=== PATIENT | female | born 1985 | race Caucasian/White ===

== ENCOUNTER 2022-06-10 19:38 | Emergency (ER) | payer OTHER ==
[2022-06-10 20:00] VITALS: RESP 16; TEMP 98.7
[2022-06-10 20:27] LABS: Basophils # (A) 0.1 k/uL (0-0.2); Basophils % (A) 0 %; Eosinophils # (A) 0.3 k/uL (0-0.7); Eosinophils % (A) 2 %; HCT 43.1 % (34.0-46.0); HGB 14.4 gm/dL (11.4-16.0); Lymphocytes # (A) 3.2 k/uL (1.0-4.8); Lymphocytes % (A) 21 %; MCH 29.5 pg (25.0-35.0); MCHC 33.5 g/dL (31.0-37.0); MCV 88.2 fL (80.0-100.0); Monocytes # (A) 0.6 k/uL (0-1.0); Monocytes % (A) 4 %; Neutrophils # (A) 10.8 k/uL (1.3-7.7); Neutrophils % (A) 71 %; Platelet Count 414 k/uL (150-450); RBC 4.88 m/uL (3.80-5.40); RDW 13.3 % (11.5-15.5); WBC 15.1 k/uL (3.8-10.6)
--- NOTE | 2022-06-10 20:40 | ED ---
General Adult HPI - General Source: patient Mode of arrival: ambulatory Limitations: no limitations <Yuki Alvarez - Last Filed: 06/10/22 20:37> <Luca Nobles - Last Filed: 06/11/22 02:47> - General Chief complaint: Syncope Stated complaint: Seizure,Sent by PCP Time Seen by Provider: 06/10/22 20:37 - History of Present Illness Initial comments: 56-year-old female with no significant past medical history presents to the emergency Department chief complaint of syncopal episode. (Yuki Núñez) This is a 36-year-old female with no past medical history presents emergency department for evaluation after syncopal episode that happened earlier in the day. The patient stated that she woke up and took a shower when she got out she inhaled some anti-nausea [id number] medications which she normally does and then stated that she felt nauseous and sat down on the floor. The next thing that she was aware of was that it was an hour later and she had bit her t ongue. The patient did not urinate on herself. The patient did not hit her head. The patient stated that she took a nap after this but then went to work all day without any further acute complaints. The patient was advised by a friend to get evaluated. On arrival, the patient had no complaints was resting in bed comfortably. The patient stated she has never passed out before. (Luca Sarabia) - Related Data Previous Rx's Medication Instructions Recorded Cephalexin [Keflex] 500 mg PO Q6HR 1 Days #20 cap 06/10/22 Allergies Allergy/AdvReac Type Severity Reaction Status Date / Time No Known Allergies Allergy Verified 06/10/22 22:27 Review of Systems ROS Other: All systems not noted in ROS Statement are negative. <Yuki Alvarez - Last Filed: 06/10/22 20:37> ROS Other: All systems not noted in ROS Statement are negative. <Luca Nobles - Last Filed: 06/11/22 02:47> ROS Statement: Those systems with pertinent positive or pertinent negative responses have been documented in the HPI. Past Medical History Past Medical History: No Reported History History of Any Multi-Drug Resistant Organisms: None Reported Past Surgical History: No Surgical Hx Reported Past Psychological History: No Psychological Hx Reported Smoking Status: Current some day smoker Past Alcohol Use History: None Reported Past Drug Use History: Marijuana <Yuki Alvarez - Last Filed: 06/10/22 20:37> General Exam Limitations: no limitations <Yuki Alvarez - Last Filed: 06/10/22 20:37> Limitations: no limitations General appearance: alert, in no apparent distress, obese Head exam: Present: atraumatic, normocephalic, normal inspection Eye exam: Present: normal appearance, PERRL Pupils: Present: normal accommodation ENT exam: Present: normal exam, normal oropharynx, mucous membranes moist Neck exam: Present: normal inspection, full ROM Respiratory exam: Present: normal lung sounds bilaterally Cardiovascular Exam: Present: regular rate, normal rhythm, normal heart sounds GI/Abdominal exam: Present: soft, normal bowel sounds Extremities exam: Present: normal inspection, full ROM Back exam: Present: normal inspection, full ROM Neurological exam: Present: alert, oriented X3, CN II-XII intact Psychiatric exam: Present: normal affect, normal mood Skin exam: Present: warm, dry <Luca Nobles - Last Filed: 06/11/22 02:47> - General Exam Comments Initial Comments: Visual Physical Exam Vital signs reviewed General: Well-appearing, nontoxic, no acute distress. Head: Normocephalic, atraumatic Eyes: PERRLA, EOMI ENT: Airway patent Chest: Nonlabored breathing Skin: No visual rash, normal skin tone Neuro: Alert and oriented 3 Musculoskeletal: No gross abnormalities (Yuki Alvarez) Course Vital Signs 06/10/22 06/10/22 19:57 23:50 Temperature 98.7 F 98.7 F Pulse Rate 88 82 Respiratory 16 16 Rate Blood Pressure 172/110 132/78 O2 Sat by Pulse 98 99 Oximetry EKG Findings - EKG Comments: EKG Findings:: In EKG was obtained and was interpreted by myself showing a rate of 84, TN interval of 144, QRS duration of 90 and QTC of 427. This EKG showed a normal sinus rhythm with no ST segment elevation or depression noted. <Luca Nobles - Last Filed: 06/11/22 02:47> Medical Decision Making - Lab Data Result diagrams: 06/10/22 20:12 <Yuki Alvarez - Last Filed: 06/10/22 20:37> - Lab Data Result diagrams: 06/10/22 20:12 06/10/22 20:12 <Luca Nobles - Last Filed: 06/11/22 02:47> - Medical Decision Making Was pt. sent in by a medical professional or institution (, PA, FENCE [employer]IVER, urgent care, hospital, or care home...) When possible be specific @ -No Did you speak to anyone other than the patient for history (EMS, parent, family, police, friend...)? What history was obtained from this source @ -No Did you review nursing and triage notes (agree or disagree)? Why? @ -I reviewed and agree with nursing and triage notes Were old charts reviewed (outside hosp., previous admission, EMS record, old EKG, old radiological studies, urgent care reports/EKG's, care home records)? Report findings @ -No old charts were reviewed Differential Diagnosis (chest pain, altered mental status, abdominal pain women, abdominal pain men, vaginal bleeding, weakness, fever, dyspnea, syncope, head ache, dizziness, GI bleed, back pain, seizure, CVA, palpatations, mental health)? @ -Vasovagal syncope, UTI, ACS EKG interpreted by me (3pts min.). @ -As above X-rays interpreted by me (1pt min.). @ -Chest x-ray was obtained and was interpreted by myself showing low lung volumes with generalized 80 appearance which could represent atelectasis versus pulmonary edema. The patient's proBNP was however negative and the patient denied any shortness of breath or chest pain. CT interpreted by me (1pt min.). @ -None done U/S interpreted by me (1pt. min.). @ -None done What testing was considered but not performed or refused? (CT, X-rays, U/S, labs)? Why? @ -None What meds were considered but not given or refused? Why? @ -None Did you discuss the management of the patient with other professionals (professionals i.e. , SARAH, FENCE [employer]IVER, lab, RT, psych nurse, licensed clinical social worker, java support engineer, teacher, chief legal officer, case folder)? Give summary @ -No Was smoking cessation discussed for >3mins.? @ -No Was critical care preformed (if so, how long)? @ -No Were there social determinants of health that impacted care today? How? (Homel essness, low income, unemployed, alcoholism, drug addiction, transportation, low edu. Level, literacy, decrease access to med. care, shelter, rehab)? @ -No Was there de-escalation of care discussed even if they declined (Discuss DNR or withdrawal of care, Hospice)? DNR status @ -No What co-morbidities impacted this encounter? (DM, HTN, Smoking, COPD, CAD, Cancer, CVA, ARF, Chemo, Hep., AIDS, mental health diagnosis, sleep apnea, morbid obesity)? @ -None Was patient admitted / discharged? Hospital course, mention meds given and route, prescriptions, significant lab abnormalities, going to OR and other pertinent info. @ -The patient was seen and evaluated emergency department. Physical exam, the patient was resting in bed without any acute distress. Vital signs admission were stable. All workup was negative and the patient had a full day of work without any acute symptoms. The patient likely had an episode of vasovagal syncope earlier in the day. The patient had a negative workup and was stable for discharge home. The patient's urinalysis however did show a UTI and she was given a dose of Keflex in the emergency department as well as given a presc ription for Keflex to be taken at home. The patient was instructed to follow-up with her primary care physician for further workup and evaluation and to report back to the emergency department if she had further recurrent syncopal episodes. The patient was agreeable to this and all her questions were answered. The patient was discharged home in stable condition. Undiagnosed new problem with uncertain prognosis? @ -No Drug Therapy requiring intensive monitoring for toxicity (Heparin, Nitro, Insulin, Cardizem)? @ -No Were any procedures done? @ -No Diagnosis/symptom? @ -Vasovagal syncope Acute, or Chronic, or Acute on Chronic? @ -Acute Uncomplicated (without systemic symptoms) or Complicated (systemic symptoms)? @ -Uncomplicated Side effects of treatment? @ -No Exacerbation, Progression, or Severe Exacerbation? @ -No Poses a threat to life or bodily function? How? (Chest pain, USA, MS, pneumonia, PE, COPD, DKA, ARF, appy, cholecystitis, CVA, Diverticulitis, Homicidal, Suicidal, threat to staff... and all critical care pts) @ -No Diagnosis/symptom? @ -Urinary tract infection Acute, or Chronic, or Acute on Chronic? @ -Acute Uncomplicated (without systemic symptoms) or Complicated (systemic symptoms)? @ -Uncomplicated Side effects of treatment? @ -none Exacerbation, Progression, or Severe Exacerbation] @ -no Poses a threat to life or bodily function? @ -no (Luca Nobles) - Lab Data Lab Results 06/10/22 06/10/22 06/10/22 Range/Units 20:12 20:12 20:12 WBC 15.1 H (3.8-10.6) k/uL RBC 4.88 (3.80-5.40) m/uL Hgb 14.4 (11.4-16.0) gm/dL Hct 43.1 (34.0-46.0) % MCV 88.2 (80.0-100.0) fL MCH 29.5 (25.0-35.0) pg MCHC 33.5 (31.0-37.0) g/dL RDW 13.3 (11.5-15.5) % Plt Count 414 (150-450) k/uL MPV 7.0 Neutrophils % 71 % Lymphocytes % 21 % Monocytes % 4 % Eosinophils % 2 % Basophils % 0 % Neutrophils # 10.8 H (1.3-7.7) k/uL Lymphocytes # 3.2 (1.0-4.8) k/uL Monocytes # 0.6 (0-1.0) k/uL Eosinophils # 0.3 (0-0.7) k/uL Basophils # 0.1 (0-0.2) k/uL PT 10.1 (9.0-12.0) sec INR 0.9 (<1.2) APTT 25.3 (22.0-30.0) sec Sodium 136 L (137-145) mmol/L Potassium 4.5 (3.5-5.1) mmol/L Chloride 102 (98-107) mmol/L Carbon Dioxide 24 (22-30) mmol/L Anion Gap 10 mmol/L BUN 15 (7-17) mg/dL Creatinine 0.64 (0.52-1.04) mg/dL Est GFR (CKD-EPI)AfAm >90 (>60 ml/min/1.73 sqM) Est GFR (CKD-EPI)NonAf >90 (>60 ml/min/1.73 sqM) Glucose 99 (74-99) mg/dL Calcium 9.5 (8.4-10.2) mg/dL Total Bilirubin 0.4 (0.2-1.3) mg/dL AST 36 (14-36) U/L ALT 45 H (4-34) U/L Alkaline Phosphatase 96 (38-126) U/L Troponin I (0.000-0.034) ng/mL NT-Pro-B Natriuret Pep pg/mL Total Protein 7.8 (6.3-8.2) g/dL Albumin 4.3 (3.5-5.0) g/dL Urine Color Urine Appearance (Clear) Urine pH (5.0-8.0) Ur Specific Bly (1.001-1.035) Urine Protein (Negative) Urine Glucose (UA) (Negative) Urine Ketones (Negative) Urine Blood (Negative) Urine Nitrite (Negative) Urine Bilirubin (Negative) Urine Urobilinogen (<2.0) mg/dL Ur Leukocyte Esterase (Negative) Urine RBC (0-5) /hpf Urine WBC (0-5) /hpf Ur Squamous Epith Cells (0-4) /hpf Urine Bacteria (None) /hpf Urine Mucus (None) /hpf 06/10/22 06/10/22 06/10/22 Range/Units 20:12 22:24 22:40 WBC (3.8-10.6) k/uL RBC (3.80-5.40) m/uL Hgb (11.4-16.0) gm/dL Hct (34.0-46.0) % MCV (80.0-100.0) fL MCH (25.0-35.0) pg MCHC (31.0-37.0) g/dL RDW (11.5-15.5) % Plt Count (150-450) k/uL MPV Neutrophils % % Lymphocytes % % Monocytes % % Eosinophils % % Basophils % % Neutrophils # (1.3-7.7) k/uL Lymphocytes # (1.0-4.8) k/uL Monocytes # (0-1.0) k/uL Eosinophils # (0-0.7) k/uL Basophils # (0-0.2) k/uL PT (9.0-12.0) sec INR (<1.2) APTT (22.0-30.0) sec Sodium (137-145) mmol/L Potassium (3.5-5.1) mmol/L Chloride (98-107) mmol/L Carbon Dioxide (22-30) mmol/L Anion Gap mmol/L BUN (7-17) mg/dL Creatinine (0.52-1.04) mg/dL Est GFR (CKD-EPI)AfAm (>60 ml/min/1.73 sqM) Est GFR (CKD-EPI)NonAf (>60 ml/min/1.73 sqM) Glucose (74-99) mg/dL Calcium (8.4-10.2) mg/dL Total Bilirubin (0.2-1.3) mg/dL AST (14-36) U/L ALT (4-34) U/L Alkaline Phosphatase (38-126) U/L Troponin I <0.012 (0.000-0.034) ng/mL NT-Pro-B Natriuret Pep 34 pg/mL Total Protein (6.3-8.2) g/dL Albumin (3.5-5.0) g/dL Urine Color Yellow Urine Appearance Cloudy H (Clear) Urine pH 5.5 (5.0-8.0) Ur Specific Bly 1.025 (1.001-1.035) Urine Protein Trace H (Negative) Urine Glucose (UA) Negative (Negative) Urine Ketones Negative (Negative) Urine Blood Negative (Negative) Urine Nitrite Negative (Negative) Urine Bilirubin Negative (Negative) Urine Urobilinogen <2.0 (<2.0) mg/dL Ur Leukocyte Esterase Large H (Negative) Urine RBC 3 (0-5) /hpf Urine WBC 30 H (0-5) /hpf Ur Squamous Epith Cells 7 H (0-4) /hpf Urine Bacteria Occasional H (None) /hpf Urine Mucus Many H (None) /hpf Disposition <Yuki Alvarez - Last Filed: 06/10/22 20:37> Is patient prescribed a controlled substance at d/c from ED?: No Time of Disposition: 23:30 <Luca Nobles - Last Filed: 06/11/22 02:47> Clinical Impression: Vasovagal syncope, UTI (urinary tract infection) Disposition: HOME SELF-CARE Condition: Stable Instructions (If sedation given, give patient instructions): Urinary Tract Infection in Women (DC), Syncope (DC) Prescriptions: Cephalexin [Keflex] 500 mg PO Q6HR 1 Days #20 cap Referrals: Laureano Fox MD [Primary Care Provider] - 1-2 days
[2022-06-10 20:53] LABS: INR 0.9 (<1.2); Partial Thromboplastin Time 25.3 sec (22.0-30.0); Prothrombin Time 10.1 sec (9.0-12.0)
[2022-06-10 20:59] LABS: ALT 45 U/L (4-34); AST 36 U/L (14-36); African American GFR (CKD) >90 (>60 ml/min/1.73 sqM); Albumin 4.3 g/dL (3.5-5.0); Alkaline Phosphatase 96 U/L (38-126); Anion Gap 10 mmol/L; Blood Urea Nitrogen 15 mg/dL (7-17); Calcium 9.5 mg/dL (8.4-10.2); Carbon Dioxide 24 mmol/L (22-30); Chloride 102 mmol/L (98-107); Glucose 99 mg/dL (74-99); Non-African American GFR(CKD) >90 (>60 ml/min/1.73 sqM); Potassium 4.5 mmol/L (3.5-5.1); Sodium 136 mmol/L (137-145); Total Bilirubin 0.4 mg/dL (0.2-1.3); Total Protein 7.8 g/dL (6.3-8.2)
--- NOTE | 2022-06-10 21:12 | XR ---
EXAMINATION TYPE: XR chest 2V DATE OF EXAM: 06/10/2022 9:02 PM COMPARISON: None TECHNIQUE: XR chest 2V Frontal and lateral views of the chest. CLINICAL INDICATION:Female, 36 years old with history of syncope; FINDINGS: Lungs/Pleura: Low lung volumes are present. There is no evidence of pleural effusion, focal consolida tion, or pneumothorax. Pulmonary vascularity: Unremarkable. Heart/mediastinum: Cardiomediastinal silhouette is unremarkable. Musculoskeletal: No acute osseous pathology. IMPRESSION: Low lung volumes with a generalized hazy appearance which could represent atelectasis versus pulmonar y edema correlate with serum BNP.
[2022-06-10 23:08] LABS: Appearance,Urine Cloudy (Clear); Bacteria,Urine Occasional /hpf; Bilirubin,Urine Negative (Negative); Blood,Urine Negative (Negative); Color,Urine Yellow; Glucose,Urine (UA) Negative (Negative); Ketones,Urine Negative (Negative); Leukocyte Esterase,Urine Large (Negative); Mucus,Urine Many /hpf; Nitrite,Urine Negative (Negative); PH, Urine 5.5 (5.0-8.0); Protein,Urine Trace (Negative); RBC,Urine 3 /hpf (0-5); Specific Gravity,Urine 1.025 (1.001-1.035); Squamous Epithelial Cell,Urine 7 /hpf (0-4); Urobilinogen,Urine <2.0 mg/dL (<2.0); WBC,Urine 30 /hpf (0-5)
[2022-06-10] MEDS ORDERED: CEPHALEXIN 500 MG CAP PO STA (23:38)
[2022-06-11 00:23] VITALS: BP 132/78; PULSE 82
== END 2022-06-10 23:50 | disposition home or self-care (01) ==
LOC: EC 19:38
DX: N39.0 Urinary tract infection, site not specified (principal); R55 Syncope and collapse; F17.200 Nicotine dependence, unspecified, uncomplicated; F12.90 Cannabis use, unspecified, uncomplicated
CPT/HCPCS: 36415; 71046; 80053; 81001; 83880; 84484; 85025; 85610; 85730; 87086; 93005; 99284

== ENCOUNTER → 2022-10-02 | Outpatient (CLI) | payer OTHER ==
--- NOTE | 2022-10-02 10:27 | CT ---
EXAMINATION TYPE: CT brain wo con DATE OF EXAM: 10/02/2022 COMPARISON: None HISTORY: Syncope, family history of aneurysm CT DLP: 984.[address] of the brain was performed. The ventricles, basal cisterns and sulci overlying the cerebral convexities demonstrate a normal appe arance. There is no evidence for intracranial hemorrhage or sulcal effacement. No mass effects are seen. Osseous calvarium is intact. Left maxillary chronic sinusitis. If symptoms persist consider MRI as clinically warranted. IMPRESSION: 1. No acute intracranial process is seen at this time.
== END | disposition home or self-care (01) ==
LOC: RADCTMAIN 09:35
PROVIDERS: ATTEND Family Medicine
DX: R55 Syncope and collapse (principal); Z82.49 Family history of ischemic heart disease and other diseases of the circulatory system
CPT/HCPCS: 70450

== ENCOUNTER → 2023-02-03 | Outpatient (CLI) | payer OTHER ==
--- NOTE | 2023-02-05 08:31 | MR ---
EXAMINATION TYPE: MR brain wo/w con DATE OF EXAM: 02/03/2023 8:53 PM CLINICAL INDICATION:Female, 37 years old with history of R56.9 UNSPECIFIED CONVULSIONS; PHH, Seizures , 3 this year starting in July, COMPARISON: Brain 10/02/2022 TECHNIQUE: Multi planar, multi sequence imaging was performed through the brain including: T1, T2, In version recovery, susceptibility weighted imaging and gradient echo imaging and Diffusion weighted im aging. The patient was then given intravenous contrast and multi planar, T1 fat-saturation images wer e obtained. IV Contrast: 15 cc Gadobutrol FINDINGS: The gardner-white junctions, ventricular system, basal cisterns appear unremarkable. Diffusion-weighted imaging shows no evidence of restricted diffusion to suggest acute/subacute infarct. Intracranial ar terial flow voids are maintained. Midline structures show no abnormality. The susceptibility weighted images do not reveal any evidence for micro-hemorrhage. There is blooming artifact in the left front al lobe compared compatible with developmental venous anomaly. After administration of gadolinium, no abnormal enhancement is seen. The bone marrow signal is within normal limits. Paranasal sinuses and mastoid air cells: No significant paranasal sinus disease. Visualized orbits: Orbital contents are intact. IMPRESSION: 1. No evidence of intracranial mass, acute/subacute infarct, or abnormal enhancement. 2. Left frontal lobe developmental venous anomaly which could be the source of patient's seizure. Co rrelate with EEG.
== END | disposition home or self-care (01) ==
LOC: RADMRIMAIN 19:19
PROVIDERS: ATTEND Family Medicine
DX: Q28.3 Other malformations of cerebral vessels (principal); R56.9 Unspecified convulsions
CPT/HCPCS: 70553; A9585

== ENCOUNTER → 2023-02-17 | Outpatient (CLI) | payer OTHER ==
--- NOTE | 2023-02-17 23:46 | EEG ---
ELECTROENCEPHALOGRAM REPORT PREAMBLE: This is a 37-year-old female with seizure. The first seizure occurred in May 2022, when the patient passed out while in the bathroom, bit her tongue, but no loss of control of urine. She came to ER and was discharged. The second seizure occurred in November with same circumstances, but did not go to the ER. Last one was on 01/26/2023. CURRENT MEDICATIONS: 1. Keppra 500 mg b.i.d. 2. Metformin. EEG FINDINGS: This is a 21-channel digital EEG recorded with video component, utilizing 10/20 International System with referential and bipolar montages. Background consists of well-developed, well-regulated, moderate-voltage activity in 8 Hz alpha. Background is posterior dominant and reactive to eye opening and closing. Background seems to be reactive to some flash frequencies. During middle part of the study, some drowsiness was seen with appearance of bilaterally symmetric theta frequency rhythm. Deeper stages of sleep were not seen. No focal or generalized epileptiform activity was seen. EKG channel showed no obvious arrhythmia. IMPRESSION: This is a normal awake and drowsy EEG. No focal, lateralized, or epileptiform activity was seen. Normal EEG does not rule out seizure disorder. If your suspicion for seizures is high, suggest prolonged, sleep-deprived EEG. MMODL / IJN: [id number] /
== END ==
LOC: NEUROMAIN 07:58
PROVIDERS: ATTEND Family Medicine
DX: R56.9 Unspecified convulsions (principal)
CPT/HCPCS: 95816